=== PATIENT | female | born 1985 | race Caucasian/White ===

== ENCOUNTER 2018-09-16 01:21 | Inpatient (IN) ==
[2018-09-16] MEDS ORDERED: *HR* LORazepam 2 MG/ML VIAL ONE (02:02)
--- NOTE | 2018-09-16 02:17 | Emergency Department Note ---
Disposition Clinical Impression: Acute psychosis Disposition: Still a Patient Condition: Fair Forms: ED Satisfaction Letter Psych HPI - General Chief Complaint: ED Psychiatric Symptoms Stated Complaint: Psych Eval/Court Ordered Time Seen by Provider: 09/16/18 01:55 Source: other Nursing Notes Reviewed: Yes Vital Signs Reviewed: Yes - History of Present Illness HPI Narrative: 32-year-old female brought to the emergency department by [employer] for evaluation for psychiatric condition. Patient has a court order for psychiatric evaluation. Unable to obtain any history or review of systems from the patient. Patient is alert but is actively hallucinating. She will not make eye contact with me. She is actively talking to multiple other people who were not in the room. The only information I could get out of her was that she thought she was having trouble sleeping. Patient is very dirty and unkempt. She has a foul odor which smells like cat urine. Closer dirty with what appears to be a lot of animal hair on her cl othing. I am unsure if the patient is homeless. Pt complaint: medical clearance request If medical clearance, reason: psychiatric condition Onset (ago): unknown Associated Psychiatric Symptoms: other (Patient psychotic and actively hallucinating. Talking to people who are not in the room and will not answer questions or follow commands.) - Related Data Allergies Allergy/AdvReac Type Severity Reaction Status Date / Time Unable to Assess Allergy Unverified 09/16/18 03:58 Limitations: ROS unobtainable due to patients medical condition Past Medical History - Past Medical History Medical history: Reports: other Psychiatric history: Reports: other - Social History Smoking Status: Unknown if ever smoked Physical Exam - General Limitations: other (Acute psychosis and will not answer questions.) General appearance: alert, in no apparent distress - Head Head exam: atraumatic, normocephalic - Chest Chest inspection: Present: normal inspection, symmetric chest wall rise. Absent: tenderness - Respiratory Respiratory exam: Present: normal lung sounds bilaterally. Absent: respiratory distress - Cardiovascular Cardiovascular exam: Present: normal rhythm, tachycardia, normal heart sounds - Abdominal Exam Abdominal exam: Present: soft, Non-Tender, normal bowel sounds - Extremities Exam Extremities exam: Present: full ROM - Back Exam Back exam: Absent: CVA tenderness (R), CVA tenderness (L) - Neurological Exam Neurological exam: Present: alert. Absent: oriented X3 - Psychiatric Psychiatric exam: Present: agitated, other (Acute psychosis with active hallucinations.) - Skin Skin exam: Absent: cyanosis, diaphoresis Course Course Narrative: Patient brought in with Court order for psychiatric evaluation. Unable to obtain any history or review of systems from the patient. Actively psychotic. Patient actively hallucinating and talking to people who were not present but will not answer questions for me. We will obtain clearance labs and consults psychiatry for evaluation. Patient given Ativan 2 mg IM for her agitation. - Reevaluation(s) Reevaluation #1: At morning shift change patient has been evaluated by the [address] psychiatry department and we are awaiting their decision regarding disposition. Patient is signed out to the [facility] physician, Dr. Troncoso. Time: 06:56 Vital Signs Temperature 98.6 F 09/16/18 01:28 Pulse Rate 95 09/16/18 01:28 Respiratory Rate 21 09/16/18 01:28 Blood Pressure 156/74 09/16/18 01:28 O2 Sat by Pulse Oximetry 99 09/16/18 01:28 Temperature 98.6 F 09/16/18 01:28 Pulse Rate 95 09/16/18 01:28 Respiratory Rate 21 09/16/18 01:28 Blood Pressure 156/74 09/16/18 01:28 O2 Sat by Pulse Oximetry 99 09/16/18 01:28 Oxygen Delivery Oxygen Delivery Room Air Psych - Lab Data Lab results reviewed: Yes I reviewed the patient's lab results. Result diagrams: 09/16/18 03:15 09/16/18 03:15 Lab Results 09/16/18 09/16/18 09/16/18 Range/Units 03:04 03:04 03:04 WBC (4.3-11.1) K/mcL RBC (3.82-4.97) M/mcL Hgb (11.5-15.4) g/dL Hct (35.3-44.9) % MCV (83.0-100.0) fL MCH (28.0-33.3) pg MCHC (31.6-35.5) g/dL RDW (11.5-14.5) % Plt Count (140-400) K/mcL MPV (9.4-12.4) fL Immature Gran % (0-4) % Seg Neutrophils % % Lymphocytes % % Monocytes % % Eosinophils % % Basophils % % Neutrophils # (1.6-8.9) K/mcL Lymphocytes # (0.6-4.6) K/mcL Monocytes # (0.0-1.3) K/mcL Eosinophils # (0.0-0.6) K/mcL Basophils # (0.0-0.2) K/mcL Sodium (136-145) mEq/L Potassium (3.5-5.1) mEq/L Chloride (98-107) mEq/L Carbon Dioxide (23-29) mEq/L BUN (6-20) mg/dL Creatinine (0.60-1.20) mg/dL Est GFR ( Amer) (> 60) Est GFR (Non-Af Amer) (> 60) BUN/Creatinine Ratio (6-26) Glucose (70-105) mg/dL Calculated Osmolality (280-300) Calcium (8.6-10.3) mg/dL Total Bilirubin (0.3-1.0) mg/dL Direct Bilirubin (0.0-0.2) mg/dL Indirect Bilirubin (0.0-1.2) mg/dL AST (13-39) Units/L ALT (7-52) Units/L Alkaline Phosphatase (34-104) Units/L Serum Total Protein (6.4-8.9) g/dL Albumin (3.5-5.7) g/dL Globulin (2.4-3.5) g/dL Albumin/Globulin Ratio (1.1-2.2) TSH (0.340-5.600) mcIU/mL Urine Color Yellow (Yellow) Urine Clarity Clear (Clear) Urine pH 6.0 (5.0-8.0) pH Units Ur Specific [place] 1.014 (1.010-1.025) Urine Protein Negative (Neg-Trace) mg/dL Urine Glucose (UA) Normal (Normal) mg/dL Urine Ketones 15 H (Negative) mg/dL Urine Blood Negative (Negative) Urine Nitrite Negative (Negative) Urine Bilirubin Negative (Negative) Urine Urobilinogen Normal (Normal) mg/dL Ur Leukocyte Esterase Negative (Negative) Urine Test Negative (Negative) Salicylates (15.0-30.0) mg/dL Urine Opiates Screen Negative ([place]=094) ng/mL Acetaminophen (10-20) mcg/mL Ur Barbiturates Screen Negative (Ahritp=502) ng/mL Ur Phencyclidine Scrn Negative (Cutoff=25) ng/mL Ur Amphetamines Screen Negative (Wqleoq=6311) ng/mL U Benzodiazepines Scrn Negative (Bxbdwg=430) ng/mL Urine Cocaine Screen Negative (Cutoff= 300) ng/mL U Marijuana (THC) Screen Negative (Cutoff = 50) ng/mL Ur Drug Screen Interp See Below Ethyl Alcohol (Less than 10) mg/dL 09/16/18 09/16/18 09/16/18 Range/Units 03:15 03:15 03:15 WBC 9.1 (4.3-11.1) K/mcL RBC 3.68 L (3.82-4.97) M/mcL Hgb 11.1 L (11.5-15.4) g/dL Hct 34.0 L (35.3-44.9) % MCV 92.4 (83.0-100.0) fL MCH 30.2 (28.0-33.3) pg MCHC 32.6 (31.6-35.5) g/dL RDW 12.9 (11.5-14.5) % Plt Count 281 (140-400) K/mcL MPV 9.3 L (9.4-12.4) fL Immature Gran % 0.3 (0-4) % Seg Neutrophils % 68.6 % Lymphocytes % 19.0 % Monocytes % 10.1 % Eosinophils % 1.5 % Basophils % 0.5 % Neutrophils # 6.2 (1.6-8.9) K/mcL Lymphocytes # 1.7 (0.6-4.6) K/mcL Monocytes # 0.9 (0.0-1.3) K/mcL Eosinophils # 0.1 (0.0-0.6) K/mcL Basophils # 0.1 (0.0-0.2) K/mcL Sodium 138 (136-145) mEq/L Potassium 3.5 (3.5-5.1) mEq/L Chloride 107 (98-107) mEq/L Carbon Dioxide 24 (23-29) mEq/L BUN 8 (6-20) mg/dL Creatinine 0.63 (0.60-1.20) mg/dL Est GFR ( Amer) > 60 (> 60) Est GFR (Non-Af Amer) > 60 (> 60) BUN/Creatinine Ratio 13 (6-26) Glucose 92 (70-105) mg/dL Calculated Osmolality 284 (280-300) Calcium 8.8 (8.6-10.3) mg/dL Total Bilirubin 0.6 (0.3-1.0) mg/dL Direct Bilirubin 0.1 (0.0-0.2) mg/dL Indirect Bilirubin 0.5 (0.0-1.2) mg/dL AST 16 (13-39) Units/L ALT 12 (7-52) Units/L Alkaline Phosphatase 44 (34-104) Units/L Serum Total Protein 6.2 L (6.4-8.9) g/dL Albumin 4.0 (3.5-5.7) g/dL Globulin 2.2 L (2.4-3.5) g/dL Albumin/Globulin Ratio 1.8 (1.1-2.2) TSH 1.328 (0.340-5.600) mcIU/mL Urine Color (Yellow) Urine Clarity (Clear) Urine pH (5.0-8.0) pH Units Ur Specific [place] (1.010-1.025) Urine Protein (Neg-Trace) mg/dL Urine Glucose (UA) (Normal) mg/dL Urine Ketones (Negative) mg/dL Urine Blood (Negative) Urine Nitrite (Negative) Urine Bilirubin (Negative) Urine Urobilinogen (Normal) mg/dL Ur Leukocyte Esterase (Negative) Urine Test (Negative) Salicylates < 2.5 L (15.0-30.0) mg/dL Urine Opiates Screen (Vbheyx=812) ng/mL Acetaminophen < 10 L (10-20) mcg/mL Ur Barbiturates Screen (Xpuszg=878) ng/mL Ur Phencyclidine Scrn (Cutoff=25) ng/mL Ur Amphetamines Screen (Bqssww=9979) ng/mL U Benzodiazepines Scrn (Cnqumm=744) ng/mL Urine Cocaine Screen (Cutoff= 300) ng/mL U Marijuana (THC) Screen (Cutoff = 50) ng/mL Ur Drug Screen Interp Ethyl Alcohol < 10 (Less than 10) mg/dL Psychiatric Medical Clearance - Medical Clearance Checklist Any abnormalities indicating possible medical illness?: No Medical History: No Social History Section defined Current Vitals: Last Vital Signs Temp 98.6 F 09/16/18 01:28 Pulse 95 09/16/18 01:28 Resp 21 09/16/18 01:28 BP 156/74 09/16/18 01:28 Pulse Ox 99 09/16/18 01:28 Psychiatric Lab Panel: Drug Levels and Toxicity 09/16/18 09/16/18 03:04 03:15 Urine Opiates Screen Negative Acetaminophen < 10 L Ur Barbiturates Screen Negative Ur Phencyclidine Scrn Negative Ur Amphetamines Screen Negative U Benzodiazepines Scrn Negative Urine Cocaine Screen Negative U Marijuana (THC) Screen Negative Ethyl Alcohol < 10 Abnormal Labs: Abnormal lab results RBC 3.68 M/mcL (3.82-4.97) L 09/16/18 03:15 Hgb 11.1 g/dL (11.5-15.4) L 09/16/18 03:15 Hct 34.0 % (35.3-44.9) L 09/16/18 03:15 MPV 9.3 fL (9.4-12.4) L 09/16/18 03:15 6.2 g/dL (6.4-8.9) L 09/16/18 03:15 2.2 g/dL (2.4-3.5) L 09/16/18 03:15 15 mg/dL (Negative) H 09/16/18 03:04 Salicylates < 2.5 mg/dL (15.0-30.0) L 09/16/18 03:15 Acetaminophen < 10 mcg/mL (10-20) L 09/16/18 03:15 Does the patient require durable medical equiptment?: No Is the patient ambulatory?: Yes Is the patient a fall risk?: No Has the patient been medically cleared?: Yes Any acute medical condition require Tx prior to transfer?: No Statement of Medical Clearance: I have evaluated the patient, reviewed diagnostic information, and certify that the patient's medical condition is sufficiently stable that transfer to the psychiatric unit does not pose a significant risk of deterioration.
[2018-09-16] MEDS ORDERED: *HR* LORazepam 2 MG/ML VIAL IM ONE (02:25)
[2018-09-16 03:14] LABS: Bilirubin,Urine Negative (Negative); Blood,Urine Negative (Negative); Clarity,Urine Clear (Clear); Color,Urine Yellow (Yellow); Glucose,Urine (UA) Normal (Normal); Ketones,Urine 15 mg/dL (Negative); Leukocyte Esterase,Urine Negative (Negative); Nitrite,Urine Negative (Negative); Protein,Urine Negative (Neg-Trace); Specific Gravity,Urine 1.014 (1.010-1.025); Urobilinogen,Urine Normal (Normal)
[2018-09-16 03:26] LABS: Basophils # 0.1 K/mcL (0.0-0.2); Basophils % 0.5 %; Eosinophils # 0.1 K/mcL (0.0-0.6); Eosinophils % 1.5 %; Hemoglobin 11.1 g/dL (11.5-15.4); Immature Granulocytes % 0.3 % (0-4); Lymphocytes # 1.7 K/mcL (0.6-4.6); Mean Corpuscular HGB Conc 32.6 g/dL (31.6-35.5); Mean Corpuscular Hemoglobin 30.2 pg (28.0-33.3); Mean Corpuscular Volume 92.4 fL (83.0-100.0); Mean Platelet Volume 9.3 fL (9.4-12.4); Monocytes # 0.9 K/mcL (0.0-1.3); Monocytes % 10.1 %; Neutrophils # 6.2 K/mcL (1.6-8.9); Platelet Count 281 K/mcL (140-400); Red Blood Count 3.68 M/mcL (3.82-4.97); Red Cell Distribution Width 12.9 % (11.5-14.5); Segmented Neutrophils % 68.6 %
[2018-09-16 03:45] LABS: Acetaminophen < 10 mcg/mL (10-20); BUN/Creatinine Ratio 13 (6-26); Blood Urea Nitrogen 8 mg/dL (6-20); Calcium 8.8 mg/dL (8.6-10.3); Carbon Dioxide 24 mEq/L (23-29); Chloride 107 mEq/L (98-107); Ethanol < 10 mg/dL (Less than 10); Glucose 92 mg/dL (70-105); Osmolality,Calculated 284 (280-300); Potassium 3.5 mEq/L (3.5-5.1); Salicylate < 2.5 mg/dL (15.0-30.0); Sodium 138 mEq/L (136-145); eGFR For Non-African Americans > 60 (> 60)
[2018-09-16 03:47] LABS: Albumin/Globulin Ratio 1.8 (1.1-2.2); Bilirubin,Direct 0.1 mg/dL (0.0-0.2); Bilirubin,Indirect 0.5 mg/dL (0.0-1.2); Bilirubin,Total 0.6 mg/dL (0.3-1.0); Globulin 2.2 g/dL (2.4-3.5); Total Protein 6.2 g/dL (6.4-8.9)
[2018-09-16 04:01] LABS: Thyroid Stimulating Hormone 1.328 mcIU/mL (0.340-5.600)
[2018-09-16 04:24] LABS: Amphetamine Screen,Urine Negative ng/mL (Cutoff=1000); Barbiturate Screen,Urine Negative ng/mL (Cutoff=200); Benzodiazepines Screen,Urine Negative ng/mL (Cutoff=200); Cannabinoid Screen,Urine Negative ng/mL (Cutoff = 50); Cocaine Screen,Urine Negative ng/mL (Cutoff= 300); Opiate Screen,Urine Negative ng/mL (Cutoff=300); Phencyclidine Screen,Urine Negative ng/mL (Cutoff=25)
--- NOTE | 2018-09-16 07:08 | Emergency Department Note ---
Disposition Clinical Impression: Acute psychosis Disposition: Admitted As Inpatient Condition: Fair Referrals: NONE,PCP [Primary Care Provider] - Forms: ED Satisfaction Letter General Adult HPI - General Chief complaint: ED Psychiatric Symptoms Stated complaint: Psych Eval/Court Ordered Time Seen by Provider: 09/16/18 01:55 Source: other Limitations: other (Acute psychosis and will not answer questions.) Nursing Notes Reviewed: Yes Vital Signs Reviewed: Yes - History of Present Illness HPI Narrative: ED attending note: Patient received in signout by the departing the emergency medicine attending Mook Pedraza. Please see copy of his note for details of the history p hysical examination evaluation and management to the point of sign out at 7 AM. Patient was clearly psychotic and" order patient has been medically cleared and evaluated by mental health services. We are awaiting their disposition which we strongly anticipate we will be placement and/or admission at [place]. Patient is comfortable breakfast tray has been ordered. Disposition pending Pain Scale: 0 - Related Data Allergies Allergy/AdvReac Type Severity Reaction Status Date / Time Unable to Assess Allergy Unverified 09/16/18 03:58 Past Medical History - Past Medical History Medical history: Reports: other Psychiatric history: Reports: other - Social History Smoking Status: Unknown if ever smoked Physical Exam - General Limitations: other (Acute psychosis and will not answer questions.) General appearance: alert, in no apparent distress Course - Reevaluation(s) Reevaluation #1: Patient was evaluated by mental health they agreed that the patient required inpatient admission. Order for admission was placed. Patient will be transported to the mental health unit. Time: 11:27 Vital Signs Temperature 98.6 F 09/16/18 01:28 Pulse Rate 95 09/16/18 01:28 Respiratory Rate 21 09/16/18 01:28 Blood Pressure 156/74 09/16/18 01:28 O2 Sat by Pulse Oximetry 99 09/16/18 01:28 Temperature 98.6 F 09/16/18 01:28 Pulse Rate 59 09/16/18 09:52 Respiratory Rate 16 09/16/18 09:52 Blood Pressure 106/69 09/16/18 09:52 O2 Sat by Pulse Oximetry 97 09/16/18 09:52 Oxygen Delivery Oxygen Delivery Room Air Medical Decision Making - Lab Data Result diagrams: 09/16/18 03:15 09/16/18 03:15 Lab Results 09/16/18 09/16/18 09/16/18 Range/Units 03:04 03:04 03:04 WBC (4.3-11.1) K/mcL RBC (3.82-4.97) M/mcL Hgb (11.5-15.4) g/dL Hct (35.3-44.9) % MCV (83.0-100.0) fL MCH (28.0-33.3) pg MCHC (31.6-35.5) g/dL RDW (11.5-14.5) % Plt Count (140-400) K/mcL MPV (9.4-12.4) fL Immature Gran % (0-4) % Seg Neutrophils % % Lymphocytes % % Monocytes % % Eosinophils % % Basophils % % Neutrophils # (1.6-8.9) K/mcL Lymphocytes # (0.6-4.6) K/mcL Monocytes # (0.0-1.3) K/mcL Eosinophils # (0.0-0.6) K/mcL Basophils # (0.0-0.2) K/mcL Sodium (136-145) mEq/L Potassium (3.5-5.1) mEq/L Chloride (98-107) mEq/L Carbon Dioxide (23-29) mEq/L BUN (6-20) mg/dL Creatinine (0.60-1.20) mg/dL Est GFR ( Amer) (> 60) Est GFR (Non-Af Amer) (> 60) BUN/Creatinine Ratio (6-26) Glucose (70-105) mg/dL Calculated Osmolality (280-300) Calcium (8.6-10.3) mg/dL Total Bilirubin (0.3-1.0) mg/dL Direct Bilirubin (0.0-0.2) mg/dL Indirect Bilirubin (0.0-1.2) mg/dL AST (13-39) Units/L ALT (7-52) Units/L Alkaline Phosphatase (34-104) Units/L Serum Total Protein (6.4-8.9) g/dL Albumin (3.5-5.7) g/dL Globulin (2.4-3.5) g/dL Albumin/Globulin Ratio (1.1-2.2) TSH (0.340-5.600) mcIU/mL Urine Color Yellow (Yellow) Urine Clarity Clear (Clear) Urine pH 6.0 (5.0-8.0) pH Units Ur Specific [place] 1.014 (1.010-1.025) Urine Protein Negative (Neg-Trace) mg/dL Urine Glucose (UA) Normal (Normal) mg/dL Urine Ketones 15 H (Negative) mg/dL Urine Blood Negative (Negative) Urine Nitrite Negative (Negative) Urine Bilirubin Negative (Negative) Urine Urobilinogen Normal (Normal) mg/dL Ur Leukocyte Esterase Negative (Negative) Urine Test Negative (Negative) Salicylates (15.0-30.0) mg/dL Urine Opiates Screen Negative (Wnaujh=938) ng/mL Acetaminophen (10-20) mcg/mL Ur Barbiturates Screen Negative (Nuftmg=606) ng/mL Ur Phencyclidine Scrn Negative (Cutoff=25) ng/mL Ur Amphetamines Screen Negative (Rmsbpj=5531) ng/mL U Benzodiazepines Scrn Negative (Fwnren=006) ng/mL Urine Cocaine Screen Negative (Cutoff= 300) ng/mL U Marijuana (THC) Screen Negative (Cutoff = 50) ng/mL Ur Drug Screen Interp See Below Ethyl Alcohol (Less than 10) mg/dL 09/16/18 09/16/18 09/16/18 Range/Units 03:15 03:15 03:15 WBC 9.1 (4.3-11.1) K/mcL RBC 3.68 L (3.82-4.97) M/mcL Hgb 11.1 L (11.5-15.4) g/dL Hct 34.0 L (35.3-44.9) % MCV 92.4 (83.0-100.0) fL MCH 30.2 (28.0-33.3) pg MCHC 32.6 (31.6-35.5) g/dL RDW 12.9 (11.5-14.5) % Plt Count 281 (140-400) K/mcL MPV 9.3 L (9.4-12.4) fL Immature Gran % 0.3 (0-4) % Seg Neutrophils % 68.6 % Lymphocytes % 19.0 % Monocytes % 10.1 % Eosinophils % 1.5 % Basophils % 0.5 % Neutrophils # 6.2 (1.6-8.9) K/mcL Lymphocytes # 1.7 (0.6-4.6) K/mcL Monocytes # 0.9 (0.0-1.3) K/mcL Eosinophils # 0.1 (0.0-0.6) K/mcL Basophils # 0.1 (0.0-0.2) K/mcL Sodium 138 (136-145) mEq/L Potassium 3.5 (3.5-5.1) mEq/L Chloride 107 (98-107) mEq/L Carbon Dioxide 24 (23-29) mEq/L BUN 8 (6-20) mg/dL Creatinine 0.63 (0.60-1.20) mg/dL Est GFR ( Amer) > 60 (> 60) Est GFR (Non-Af Amer) > 60 (> 60) BUN/Creatinine Ratio 13 (6-26) Glucose 92 (70-105) mg/dL Calculated Osmolality 284 (280-300) Calcium 8.8 (8.6-10.3) mg/dL Total Bilirubin 0.6 (0.3-1.0) mg/dL Direct Bilirubin 0.1 (0.0-0.2) mg/dL Indirect Bilirubin 0.5 (0.0-1.2) mg/dL AST 16 (13-39) Units/L ALT 12 (7-52) Units/L Alkaline Phosphatase 44 (34-104) Units/L Serum Total Protein 6.2 L (6.4-8.9) g/dL Albumin 4.0 (3.5-5.7) g/dL Globulin 2.2 L (2.4-3.5) g/dL Albumin/Globulin Ratio 1.8 (1.1-2.2) TSH 1.328 (0.340-5.600) mcIU/mL Urine Color (Yellow) Urine Clarity (Clear) Urine pH (5.0-8.0) pH Units Ur Specific [place] (1.010-1.025) Urine Protein (Neg-Trace) mg/dL Urine Glucose (UA) (Normal) mg/dL Urine Ketones (Negative) mg/dL Urine Blood (Negative) Urine Nitrite (Negative) Urine Bilirubin (Negative) Urine Urobilinogen (Normal) mg/dL Ur Leukocyte Esterase (Negative) Urine Test (Negative) Salicylates < 2.5 L (15.0-30.0) mg/dL Urine Opiates Screen (Docflv=212) ng/mL Acetaminophen < 10 L (10-20) mcg/mL Ur Barbiturates Screen (Ajepjj=329) ng/mL Ur Phencyclidine Scrn (Cutoff=25) ng/mL Ur Amphetamines Screen (Wnzfhz=5435) ng/mL U Benzodiazepines Scrn (Wetscc=704) ng/mL Urine Cocaine Screen (Cutoff= 300) ng/mL U Marijuana (THC) Screen (Cutoff = 50) ng/mL Ur Drug Screen Interp Ethyl Alcohol < 10 (Less than 10) mg/dL
[2018-09-16] MEDS: Ziprasidone 20 MG CAPSULE PO SCH ×2 (13:18→20:51)
[2018-09-16] MEDS ORDERED: Acetaminophen 325 MG TABLET PO PRN (13:46)
[2018-09-16] MEDS ORDERED: Haloperidol Lactate 5 MG/ML VIAL IM PRN (13:46)
[2018-09-16] MEDS ORDERED: Mag Hydrox/Al Hydrox/Simeth 30 ML UDC PO PRN (13:46)
[2018-09-16] MEDS ORDERED: MOM Conc 10 ML UD.LIQ PO PRN (13:46)
[2018-09-16] MEDS ORDERED: *HR* LORazepam 1 MG TABLET PO PRN (13:46)
[2018-09-16] MEDS ORDERED: *HR* LORazepam 2 MG/ML VIAL IM PRN (13:46)
[2018-09-17] MEDS: Ziprasidone 20 MG CAPSULE PO SCH (10:44)
--- NOTE | 2018-09-17 10:52 | Psychiatry History & Physical ---
Date of Encounter: 09/17/18 Time of Encounter: 10:43 History of Present Illness Patient Stated Chief Complaint: psychosis Medicare Admission Attestation: For traditional Medicare patients the provided hospital inpatient services are reasonable and necessary and in the case of services not specified as inpatient-only under 42 CFR 419.22 (n), that they are appropriately provided as inpatient services in accordance 42 CFR 412.3. For Critical [facility] the patient may reasonably be expected to be discharged or transferred to a hospital within 96 hours after admission to the Critical [facility] Hospital. Admitted From: Home Plans for Post Hospital Care: Home History of Present Illness: Ms. Howard is a 32 year old female who is actively psychotic. Unable to give any history at this time. According to staff no one is familiar with her and it does not appear as if she has ever been here before. Police reportedly picked her up and brought her to the ER. On eval client is rocking back and forth and responding to internal stimuli. Having multiple conversations with people who are not there. She is able to answer questions with yes/no provided she takes the time to really listen to what is being asked. However, it is clear that there are several voices competing for her attention and she has a hard time focusing at this time. She was able to deny SI/HI. Denies she has a mental health history although that is doubtful given her presentation. Denies AOD use and tox screen negative. States she lives with someone called "delgado." Asked this freelance writer to call her but the phone number she gave this freelance writer was a series of numbers that do not make up a complete phone number. Since arriving on the unit client has been writing excessively. Filling up pages in her notebook with nonsensical thoughts. Very impaired by her psychosis at this point but she did take prns offered in the ER so will get her started on an antipsychotic today. Nothing is known about her medical or family history. Past Med Surg Social Fam HX - Past Medical History Medical history: other - Past Psychiatric History Psychiatric history: Reports: other Family psychiatric history: Unknown Family History of Suicide: Unknown - Social History Smoking Status: Unknown if ever smoked Medications & Allergies Allergy/AdvReac Type Severity Reaction Status Date / Time Unable to Assess Allergy Unverified 09/16/18 03:58 Review of Systems Constitutional: Denies: fever, chills, weakness, weight change Eyes: Denies: eye pain, vision change Ears, Nose, Throat: Denies: ear pain, throat pain, dental pain, hearing loss, congestion Cardiovascular: Denies: chest pain, palpitations, dyspnea on exertion Respiratory: Denies: cough, dyspnea, wheezes Gastrointestinal: Denies: abdominal pain, nausea, vomiting, diarrhea, constipation Genitourinary female: Denies: urgency, dysuria, frequency, abnormal menses, dyspareunia Musculoskeletal: Denies: joint swelling, joint pain Integumentary: Denies: rash, lesions, pruritus Neurological: Denies: headache, weakness, numbness, memory loss Endocrine: Denies: fatigue, heat or cold intolerance Hematologic/Lymphatic: Denies: easy bruising, lymphadenopathy Allergic/Immunologic: Denies: urticaria, itchy eyes Exam - HEENT Eye exam IM: Present: EOMI, normal appearance, PERRL ENT exam IM: Present: normal exam - Neurological Neurological exam: Present: CN II-XII intact - Respiratory Respiratory exam IM: Present: CTAB - GI/Abdominal GI/Abdominal exam IM: Present: normal bowel sounds, soft. Absent: tenderness - Extremities Extremities exam IM: Present: full ROM - Skin Skin exam IM: Present: dry, warm - Constitutional Vitals: Temp Pulse Resp BP Pulse Ox 98.2 F 86 18 124/87 100 09/17/18 08:46 09/17/18 08:46 09/17/18 08:46 09/17/18 08:46 09/17/18 08:46 General appearance: unkempt, disheveled - Musculoskeletal Gait: normal Station: relaxed Strength & Tone: normal for patient - Psychiatric Patient Orientation: Yes Person, Yes Circumstance Level of alertness: Alert Behavior: agitated Psychomotor activity: Increased Eye Contact: Minimal Contact Mood Description: Irritable Affect description: congruent with mood Speech Volume: Normal Speech pattern: normal rate, normal rhythm, normal tone, fluent, spontaneous Language & Vocabulary: consistent with education Thought Process: Flight of Ideas, Disorganized Thought Content: No Suicidal ideation, No Homicidal ideation Perceptual Disturbances: Yes Reacting to internal stimuli Attention Span Ability: Unable to Focus, Unable to Sustain Attention Memory Description: Immediate Intact, Recent Impaired, Remote Intact Patient Reliability: Not Reliable Historian Fund of knowledge: Yes abstraction ability Intelligence Estimate: Average Judgment: Limited Insight: None Results - Labs Labs: Laboratory Last Values WBC 9.1 K/mcL (4.3-11.1) 09/16/18 03:15 RBC 3.68 M/mcL (3.82-4.97) L 09/16/18 03:15 Hgb 11.1 g/dL (11.5-15.4) L 09/16/18 03:15 Hct 34.0 % (35.3-44.9) L 09/16/18 03:15 MCV 92.4 fL (83.0-100.0) 09/16/18 03:15 MCH 30.2 pg (28.0-33.3) 09/16/18 03:15 MCHC 32.6 g/dL (31.6-35.5) 09/16/18 03:15 RDW 12.9 % (11.5-14.5) 09/16/18 03:15 Plt Count 281 K/mcL (140-400) 09/16/18 03:15 MPV 9.3 fL (9.4-12.4) L 09/16/18 03:15 Immature Gran % 0.3 % (0-4) 09/16/18 03:15 Seg Neutrophils % 68.6 % 09/16/18 03:15 19.0 % 09/16/18 03:15 10.1 % 09/16/18 03:15 1.5 % 09/16/18 03:15 0.5 % 09/16/18 03:15 6.2 K/mcL (1.6-8.9) 09/16/18 03:15 1.7 K/mcL (0.6-4.6) 09/16/18 03:15 0.9 K/mcL (0.0-1.3) 09/16/18 03:15 0.1 K/mcL (0.0-0.6) 09/16/18 03:15 0.1 K/mcL (0.0-0.2) 09/16/18 03:15 Sodium 138 mEq/L (136-145) 09/16/18 03:15 Potassium 3.5 mEq/L (3.5-5.1) 09/16/18 03:15 Chloride 107 mEq/L (98-107) 09/16/18 03:15 Carbon Dioxide 24 mEq/L (23-29) 09/16/18 03:15 BUN 8 mg/dL (6-20) 09/16/18 03:15 0.63 mg/dL (0.60-1.20) 09/16/18 03:15 Est GFR ( Amer) > 60 (> 60) 09/16/18 03:15 Est GFR (Non-Af Amer) > 60 (> 60) 09/16/18 03:15 13 (6-26) 09/16/18 03:15 Glucose 92 mg/dL (70-105) 09/16/18 03:15 284 (280-300) 09/16/18 03:15 Calcium 8.8 mg/dL (8.6-10.3) 09/16/18 03:15 0.6 mg/dL (0.3-1.0) 09/16/18 03:15 0.1 mg/dL (0.0-0.2) 09/16/18 03:15 0.5 mg/dL (0.0-1.2) 09/16/18 03:15 AST 16 Units/L (13-39) 09/16/18 03:15 ALT 12 Units/L (7-52) 09/16/18 03:15 44 Units/L (34-104) 09/16/18 03:15 6.2 g/dL (6.4-8.9) L 09/16/18 03:15 4.0 g/dL (3.5-5.7) 09/16/18 03:15 2.2 g/dL (2.4-3.5) L 09/16/18 03:15 1.8 (1.1-2.2) 09/16/18 03:15 TSH 1.328 mcIU/mL (0.340-5.600) 09/16/18 03:15 Yellow (Yellow) 09/16/18 03:04 Clear (Clear) 09/16/18 03:04 6.0 pH Units (5.0-8.0) 09/16/18 03:04 Ur Specific Bantam 1.014 (1.010-1.025) 09/16/18 03:04 Negative mg/dL (Neg-Trace) 09/16/18 03:04 Normal mg/dL (Normal) 09/16/18 03:04 15 mg/dL (Negative) H 09/16/18 03:04 Negative (Negative) 09/16/18 03:04 Negative (Negative) 09/16/18 03:04 Negative (Negative) 09/16/18 03:04 Normal mg/dL (Normal) 09/16/18 03:04 Ur Leukocyte Esterase Negative (Negative) 09/16/18 03:04 Negative (Negative) 09/16/18 03:04 Salicylates < 2.5 mg/dL (15.0-30.0) L 09/16/18 03:15 Negative ng/mL (Zeogsx=437) 09/16/18 03:04 Acetaminophen < 10 mcg/mL (10-20) L 09/16/18 03:15 Ur Barbiturates Screen Negative ng/mL (Holgtx=456) 09/16/18 03:04 Ur Phencyclidine Scrn Negative ng/mL (Cutoff=25) 09/16/18 03:04 Ur Amphetamines Screen Negative ng/mL (Hemjot=0525) 09/16/18 03:04 U Benzodiazepines Scrn Negative ng/mL (Voyqeq=693) 09/16/18 03:04 Negative ng/mL (Cutoff= 300) 09/16/18 03:04 U Marijuana (THC) Screen Negative ng/mL (Cutoff = 50) 09/16/18 03:04 Ur Drug Screen Interp See Below 09/16/18 03:04 Ethyl Alcohol < 10 mg/dL (Less than 10) 09/16/18 03:15 Assessment and Plan (1) Acute psychosis Current visit: Yes Status: Acute Plan: Admit inpatient for safety and stabilization, Close observation, Suicide Precautions per unit protocol, Encourage participation in unit milieu, Group Therapy, Monitor sleep, Monitor appetite Risks, benefits, side effects, alternatives discussed w/pt: Yes Patient agreeable to treatment: Yes Plans for Post Hospital Care: Home Estimated Length of Stay (Days): 7
[2018-09-17] MEDS: OLANZapine 10 MG TAB.RAPDIS PO SCH (20:48)
[2018-09-17] MEDS: hydrOXYzine pamoate 25 MG CAPSULE PO PRN (20:48)
--- NOTE | 2018-09-18 11:10 | Psychiatry Progress Note ---
Date of Encounter: 09/18/18 Time of Encounter: 11:08 Subjective Interval history: Patient very disorganized. It was difficult to understand her speech at times but then did clearly state that she is half robot and does not belong here. She was frequently blinking her eyes. She carried a journal with writing across all of the pages as well as writing on both of her hands. She has tried to spit out her medications. Been noted by staff to be arguing with her voices. She has not eaten at all yesterday. She slept 7-3/4 hours. She has been noted to be labile at times. Review of Systems Psychiatric: Reports: anxiety, auditory hallucinations, visual hallucinations, difficulty concentrating, irritability, other (psychosis) Results - Vital Signs Vital Signs: Temp Pulse Resp BP Pulse Ox 99 F 82 20 119/73 100 09/18/18 09:00 09/18/18 09:00 09/18/18 09:00 09/18/18 09:00 09/18/18 09:00 Assessment and Plan (1) Schizophrenia Current visit: Yes Status: Acute Plan: Continue hospitalization, Close observation, Suicide Precautions per unit protocol, Encourage participation in unit milieu, Group Therapy, Monitor sleep, Monitor appetite Additional Plan: Increase Zyprexa by 5 in the morning to a total of 5 mg in the morning and 10 at night for further mood stabilization and antipsychotic effect. Her aims is 0. She has had some difficulties with compliance if this continues we will consider for court ordered medications. Encourage groups. Consult Discharge Plan - Plan Referrals: NONE,PCP [Primary Care Provider] - Psychiatry Exam - Constitutional Vitals: Temp Pulse Resp BP Pulse Ox 99 F 82 20 119/73 100 09/18/18 09:00 09/18/18 09:00 09/18/18 09:00 09/18/18 09:00 09/18/18 09:00 General appearance: disheveled, malodorous - Musculoskeletal Gait: brisk Station: stooped Strength & Tone: normal for patient - Psychiatric Patient Orientation: Yes Person (responds to name) Level of alertness: Alert Behavior: guarded, suspicious Psychomotor activity: Increased Eye Contact: Rapid Blinking (squinting at times) Mood Description: Irritable Patient description of mood: why Affect description: labile Speech Volume: Whispering Speech pattern: garbled Language & Vocabulary: limited Thought Process: Flight of Ideas Thought Content: No Suicidal ideation, No Homicidal ideation, Yes Preoccupation, Yes Paranoid delusion, Yes Somatic delusion Perceptual Disturbances: Yes Reacting to internal stimuli, Yes Auditory hallucinations, Yes Visual hallucinations Attention Span Ability: Unable to Focus, Unable to Sustain Attention Memory Description: Immediate Impaired, Recent Impaired, Remote Impaired Patient Reliability: Not Reliable Historian Fund of knowledge: Yes below average Intelligence Estimate: Below Average Judgment: Poor Insight: None
[2018-09-18] MEDS: hydrOXYzine pamoate 25 MG CAPSULE PO PRN (22:50)
[2018-09-18] MEDS: OLANZapine 10 MG TAB.RAPDIS PO SCH (22:50)
--- NOTE | 2018-09-19 08:08 | Psychiatry Progress Note ---
Date of Encounter: 09/19/18 Time of Encounter: 08:06 Subjective Interval history: Patient remains very disorganized and confused. She is disheveled. She has not been caring for her activities of daily living. She has been eating very little. She did take her Zyprexa Zydis last night. She also required when necessary Seroquel and Vistaril due to increased psychosis. She has periods of lability and irritability. Review of Systems Psychiatric: Reports: anxiety, auditory hallucinations, visual hallucinations, difficulty concentrating, irritability, other (psychosis) Results - Vital Signs Vital Signs: Temp Pulse Resp BP Pulse Ox 97.4 F L 84 18 119/84 99 09/18/18 21:00 09/18/18 21:00 09/18/18 21:00 09/18/18 21:00 09/18/18 21:00 Assessment and Plan (1) Schizophrenia Current visit: Yes Status: Acute Plan: Continue hospitalization, Close observation, Suicide Precautions per unit protocol, Encourage participation in unit milieu, Group Therapy, Monitor sleep, Monitor appetite Additional Plan: Will get first dose of am zydis today. Will increase prn seroquel. Encourage groups Consult Discharge Plan - Plan Referrals: NONE,PCP [Primary Care Provider] - Psychiatry Exam - Constitutional Vitals: Temp Pulse Resp BP Pulse Ox 97.4 F L 84 18 119/84 99 09/18/18 21:00 09/18/18 21:00 09/18/18 21:00 09/18/18 21:00 09/18/18 21:00 General appearance: disheveled, malodorous - Musculoskeletal Gait: slow Station: slouched Strength & Tone: normal for patient - Psychiatric Patient Orientation: Yes Person Level of alertness: Alert Behavior: guarded, suspicious Psychomotor activity: Repetitive movements Eye Contact: Avoids Eye Contact Mood Description: Labile Patient description of mood: What side of the earth are we on Affect description: labile, inappropriate to situation Speech Volume: Soft/Quiet Speech pattern: garbled Language & Vocabulary: limited Thought Process: Thought Blocking, Perseveration Thought Content: No Suicidal ideation, No Homicidal ideation, Yes Paranoid delusion Perceptual Disturbances: Yes Reacting to internal stimuli, Yes Auditory hallucinations, Yes Visual hallucinations Attention Span Ability: Unable to Focus, Unable to Sustain Attention Memory Description: Immediate Impaired, Recent Impaired, Remote Impaired Patient Reliability: Not Reliable Historian Fund of knowledge: Yes below average Intelligence Estimate: Below Average Judgment: Poor Insight: None
[2018-09-19] MEDS: OLANZapine 5 MG TAB.RAPDIS PO SCH (10:12)
[2018-09-19] MEDS: OLANZapine 10 MG TAB.RAPDIS PO SCH (20:04)
[2018-09-19] MEDS: hydrOXYzine pamoate 25 MG CAPSULE PO PRN (20:04)
--- NOTE | 2018-09-20 08:34 | Psychiatry Progress Note ---
Date of Encounter: 09/20/18 Time of Encounter: 08:32 Subjective Interval history: michael remains very disorganized. I asked her if there was some and we contacted for additional information. She again gave the name "Rosalino". I asked her to write down his name and phone number and she repeatedly wrote different spellings of the name and crossing them out and then writing the #[phone] with different digits after at several different times and counting it out. She continues to try to cheek medications but talks to herself the staff overhear her saying "just put it under your tongue for a minute Earnestine". They have been monitoring her. She spends a lot of time circling the unit. She is very disheveled. She eats very little. She is responding to internal stimuli. Review of Systems Psychiatric: Reports: anxiety, auditory hallucinations, visual hallucinations, difficulty concentrating, irritability, other (psychosis) Results - Vital Signs Vital Signs: Temp Pulse Resp BP Pulse Ox 97.4 F L 84 18 119/84 99 09/18/18 21:00 09/18/18 21:00 09/18/18 21:00 09/18/18 21:00 09/18/18 21:00 Assessment and Plan (1) Schizophrenia Current visit: Yes Status: Acute Plan: Continue hospitalization, Close observation, Suicide Precautions per unit protocol, Encourage participation in unit milieu, Group Therapy, Monitor sleep, Monitor appetite Additional Plan: Her rose Parag catatonia rating scale was notable for positives on 10 of the first 14 screening inventory items with a total score of 27. Given this I will trial some Ativan to see if this has any improvement in her functioning. Start Ativan 1 mg by mouth 3 times a day for possible catatonic symptoms. Continue other medications. Encourage groups. Risks, benefits, side effects, alternatives discussed w/pt: Yes Patient agre eable to treatment: Yes Qualifiers: Schizophrenia type: undifferentiated schizophrenia Qualified Code(s): F20.3 - Undifferentiated schizophrenia Consult Discharge Plan - Plan Referrals: NONE,PCP [Primary Care Provider] - Psychiatry Exam - Constitutional Vitals: Temp Pulse Resp BP Pulse Ox 97.4 F L 84 18 119/84 99 09/18/18 21:00 09/18/18 21:00 09/18/18 21:00 09/18/18 21:00 09/18/18 21:00 General appearance: disheveled, malodorous - Musculoskeletal Gait: slow Station: stooped Strength & Tone: mild weakness - Psychiatric Patient Orientation: Yes Person Level of alertness: Alert Behavior: guarded, suspicious Psychomotor activity: Catatonic (May have some repetitive purposeless catatonic type behaviors.) Eye Contact: Avoids Eye Contact Mood Description: Other Patient description of mood: "what?" Affect description: inappropriate to situation, incongruent with mood Speech Volume: Soft/Quiet Speech pattern: garbled Language & Vocabulary: limited Thought Process: Flight of Ideas Thought Content: No Suicidal ideation, No Homicidal ideation, Yes Preoccupation, Yes Paranoid delusion Perceptual Disturbances: Yes Reacting to internal stimuli, Yes Auditory hallucinations, Yes Visual hallucinations Attention Span Ability: Unable to Focus, Unable to Sustain Attention Memory Description: Immediate Impaired, Recent Impaired, Remote Impaired Patient Reliability: Not Reliable Historian Fund of knowledge: Yes below average Intelligence Estimate: Below Average Judgment: Poor Insight: None
[2018-09-20] MEDS: *HR* LORazepam 1 MG TABLET PO SCH ×3 (10:33→22:09)
[2018-09-20] MEDS: OLANZapine 5 MG TAB.RAPDIS PO SCH (10:33)
[2018-09-20] MEDS: hydrOXYzine pamoate 25 MG CAPSULE PO PRN (22:09)
[2018-09-20] MEDS: OLANZapine 10 MG TAB.RAPDIS PO SCH (22:09)
--- NOTE | 2018-09-21 08:12 | Psychiatry Progress Note ---
Date of Encounter: 09/21/18 Time of Encounter: 08:10 Subjective Interval history: pt is still very disorganized. No real change with the ativan. SHe is responding to internal stimuli. Not caring for ADLs, eating very little. Review of Systems Psychiatric: Reports: anxiety, auditory hallucinations, visual hallucinations, difficulty concentrating, irritability, other (psychosis) Results - Vital Signs Vital Signs: Temp Pulse Resp BP Pulse Ox 98.2 F 92 14 103/66 100 09/20/18 21:00 09/20/18 21:00 09/20/18 21:00 09/20/18 21:00 09/20/18 21:00 Assessment and Plan (1) Schizophrenia Current visit: Yes Status: Acute Plan: Continue hospitalization, Close observation, Suicide Precautions per unit protocol, Encourage participation in unit milieu, Group Therapy, Monitor sleep, Monitor appetite Additional Plan: continue meds, encourage groups, therapist trying to get collateral. Risks, benefits, side effects, alternatives discussed w/pt: Yes Patient agreeable to treatment: Yes Qualifiers: Schizophrenia type: undifferentiated schizophrenia Qualified Code(s): F20.3 - Undifferentiated schizophrenia Consult Discharge Plan - Plan Referrals: NONE,PCP [Primary Care Provider] - Psychiatry Exam - Constitutional Vitals: Temp Pulse Resp BP Pulse Ox 98.2 F 92 14 103/66 100 09/20/18 21:00 09/20/18 21:00 09/20/18 21:00 09/20/18 21:00 09/20/18 21:00 General appearance: age & developmentally appropriate, unkempt, disheveled, bizarre - Musculoskeletal Gait: normal Station: relaxed Strength & Tone: normal for patient - Psychiatric Patient Orientation: Yes Person, Yes Time, Yes Place Level of alertness: Alert Behavior: guarded, suspicious Psychomotor activity: Normal Eye Contact: Maintains Eye Contact Mood Description: Labile Patient description of mood: the earth is my home Affect description: labile, incongruent with mood Speech Volume: Soft/Quiet Speech pattern: garbled Language & Vocabulary: limited Thought Process: Disorganized Thought Content: No Suicidal ideation, No Homicidal ideation, No Overt delusions Perceptual Disturbances: Yes Reacting to internal stimuli, Yes Auditory hallucinations, Yes Visual hallucinations Attention Span Ability: Unable to Sustain Attention Memory Description: Immediate Impaired, Recent Impaired, Remote Impaired Patient Reliability: Not Reliable Historian Fund of knowledge: Yes abstraction ability, Yes below average Intelligence Estimate: Below Average Judgment: Poor Insight: None
[2018-09-21] MEDS: *HR* LORazepam 1 MG TABLET PO SCH ×3 (10:25→21:10)
[2018-09-21] MEDS: OLANZapine 5 MG TAB.RAPDIS PO SCH (10:25)
[2018-09-21] MEDS: OLANZapine 10 MG TAB.RAPDIS PO SCH (21:10)
[2018-09-22] MEDS: *HR* LORazepam 1 MG TABLET PO SCH ×3 (09:20→20:59)
[2018-09-22] MEDS: OLANZapine 5 MG TAB.RAPDIS PO SCH (09:20)
--- NOTE | 2018-09-22 09:33 | Psychiatry Progress Note ---
Date of Encounter: 09/22/18 Time of Encounter: 09:30 Subjective Interval history: Patient still actively responding to internal stimuli. Having side conversations when no one is there. She is agitated. Saying "I will do whatever I have to to get out of here". She talks about herself in the third person. I continue to try to get more information about this does be person who she says she has been living with but she cannot give me a logical phone number and goes back and forth on pronouns. It is unclear if this is a legitimate person. She also mentioned that Malik today. With much encouragement from staff she did shower yesterday and she is looking slightly less dirty and malod orous though she is still very disheveled. She is eating minimally. She still attempts to cheek medications but with staff encouragement does take them. She has been agitated. Review of Systems Psychiatric: Reports: anxiety, auditory hallucinations, visual hallucinations, difficulty concentrating, irritability, other (psychosis) Results - Vital Signs Vital Signs: Temp Pulse Resp BP Pulse Ox 99.2 F 106 20 111/68 98 09/21/18 21:00 09/21/18 21:00 09/21/18 21:00 09/21/18 21:00 09/21/18 21:00 Assessment and Plan (1) Schizophrenia Current visit: Yes Status: Acute Plan: Continue hospitalization, Close observation, Suicide Precautions per unit protocol, Encourage participation in unit milieu, Group Therapy, Monitor sleep, Monitor appetite Additional Plan: Increase situs to 10 mg twice a day for further stabilization of psychosis and mood. Encourage group attendance. To get collateral information. Risks, benefits, side effects, alternatives discussed w/pt: Yes Patient agreeable to treatment: Yes Qualifiers: Schizophrenia type: undifferentiated schizophrenia Qualified Code(s): F20.3 - Undifferentiated schizophrenia Consult Discharge Plan - Plan Referrals: NONE,PCP [Primary Care Provider] - Psychiatry Exam - Constitutional Vitals: Temp Pulse Resp BP Pulse Ox 99.2 F 106 20 111/68 98 09/21/18 21:00 09/21/18 21:00 09/21/18 21:00 09/21/18 21:00 09/21/18 21:00 General appearance: disheveled, bizarre - Musculoskeletal Gait: other (Pacing) Station: bizarre mannerisms Strength & Tone: mild weakness - Psychiatric Patient Orientation: Yes Person Level of alertness: Alert Behavior: agitated, guarded, suspicious Psychomotor activity: Increased Eye Contact: No Eye Contact Mood Description: Irritable Patient description of mood: I want to get out of here Affect description: labile Speech pattern: garbled Language & Vocabulary: limited Thought Process: Disorganized Thought Content: No Suicidal ideation, No Homicidal ideation, Yes Preoccupation, Yes Paranoid delusion, Yes Grandiose delusion Perceptual Disturbances: Yes Reacting to internal stimuli, Yes Auditory hallucinations, Yes Visual hallucinations Attention Span Ability: Unable to Focus, Unable to Sustain Attention Memory Description: Immediate Impaired, Recent Impaired, Remote Impaired Patient Reliability: Not Reliable Historian Fund of knowledge: Yes below average Intelligence Estimate: Below Average Judgment: Poor Insight: None
[2018-09-22] MEDS: OLANZapine 10 MG TAB.RAPDIS PO SCH (20:52)
--- NOTE | 2018-09-23 08:55 | Psychiatry Progress Note ---
Date of Encounter: 09/23/18 Time of Encounter: 08:53 Subjective Interval history: Patient tolerated the increase in Zyprexa. She is at least more aware of where she is now understand she is in the hospital and is asking to leave. However she continues to be very disorganized she paces the villalpando in circles, is not caring for her ADLs, is eating very little, is responding to internal stimuli and talking to herself. She is paranoid. She has been threatening verbally but has not acted out physically. Her mother did find her and called the unit. She was able to provide some information. According to the nurses note: "This RN receives a call from the patient's mother Yadi Howard cell [phone], home [phone]. Information provided by mother patient has a long history of schizophrenia and this started in the 5th or 6th grade for the patient. Mother states that the patient has been off of her medications for approximately 1 year now the patient lives with her mother in [place] from the [facility]. Yadi states that patient is hard to handle when she is having command hallucinations and she does what the voices are telling her to do. The patient's mother states that the patient was not eating and her mother was giving her Ensure to drink. The patient's mother states that she has had to wrestle the patient and wash her hair, the patient's mother states that the knots were so bad in the patient's hair that she could not comb them out and they had to be cut. The patient was on an IEP all through school and did graduate. She has no significant work history and has had 2 temp jobs and didn't meet qualifications. 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 Yadi states that the patient likes to patti and draw. The patient was engaged and her fiance , as he aspirated in his sleep. Yadi states, "After losing Arden, she has never been right." Pt does have a history of burning her self with cigarettes and cutting superficially. The only legal history happens about 2 years ago when the patient walked across the street and had been drinking the patient was arrested for public intox. and mother bailed out the next morning. Yadi states that the patient is allergic to Invega and as far as she know that is the only medication the patient can not take. Yadi states the Invega "made Earnestine have convulsions" Yadi states that the patient did well on Paxil and Prozac years ago. Yadi is hopeful that the patient will be linked with services as far as a counselor and prescriber." Review of Systems Psychiatric: Reports: anxiety, auditory hallucinations, visual hallucinations, difficulty concentrating, irritability, other (psychosis) Results - Vital Signs Vital Signs: Temp Pulse Resp BP Pulse Ox 98.3 F 96 16 126/59 99 09/22/18 20:47 09/22/18 20:47 09/22/18 20:47 09/22/18 20:47 09/22/18 20:47 Assessment and Plan (1) Schizophrenia Current visit: Yes Status: Acute Plan: Continue hospitalization, Close observation, Suicide Precautions per unit protocol, Encourage participation in unit milieu, Group Therapy, Monitor sleep, Monitor appetite Additional Plan: Continue medications. Consider further increase Zyprexa tomorrow. Encourage group attendance. Risks, benefits, side effects, alternatives discussed w/pt: Yes Patient agreeable to treatment: Yes Qualifiers: Schizophrenia type: undifferentiated schizophrenia Qualified Code(s): F20.3 - Undifferentiated schizophrenia Consult Discharge Plan - Plan Referrals: NONE,PCP [Primary Care Provider] - Psychiatry Exam - Constitutional Vitals: Temp Pulse Resp BP Pulse Ox 98.3 F 96 16 126/59 99 09/22/18 20:47 09/22/18 20:47 09/22/18 20:47 09/22/18 20:47 09/22/18 20:47 General appearance: unkempt, disheveled, malodorous, thin - Musculoskeletal Gait: slow Station: stooped Strength & Tone: normal for patient - Psychiatric Patient Orientation: Yes Person, Yes Place Level of alertness: Alert Behavior: agitated, guarded, suspicious Psychomotor activity: Increased Eye Contact: No Eye Contact Mood Description: Angry, Labile Patient description of mood: "I want to go home now. Now!" Affect description: labile Speech Volume: Loud Speech pattern: normal rate Language & Vocabulary: limited Thought Process: Disorganized Thought Content: No Suicidal ideation, No Homicidal ideation, Yes Overt delusions, Yes Paranoid delusion Perceptual Disturbances: Yes Reacting to internal stimuli, Yes Auditory hallucinations, Yes Visual hallucinations Attention Span Ability: Unable to Focus, Unable to Sustain Attention Memory Description: Immediate Impaired, Recent Impaired, Remote Impaired Patient Reliability: Not Reliable Historian Fund of knowledge: Yes below average Intelligence Estimate: Below Average Judgment: Poor Insight: None
[2018-09-23] MEDS: OLANZapine 10 MG TAB.RAPDIS PO SCH ×2 (08:58→20:03)
[2018-09-23] MEDS: *HR* LORazepam 1 MG TABLET PO SCH ×3 (08:58→20:03)
[2018-09-23] MEDS: hydrOXYzine pamoate 25 MG CAPSULE PO PRN ×2 (13:53→20:03)
[2018-09-24] MEDS: OLANZapine 10 MG TAB.RAPDIS PO SCH ×2 (09:51→21:28)
[2018-09-24] MEDS: *HR* LORazepam 1 MG TABLET PO SCH ×3 (09:53→21:28)
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
[2018-09-24] MEDS: OLANZapine 5 MG TAB.RAPDIS PO SCH (21:29)
[2018-09-25] MEDS: OLANZapine 5 MG TAB.RAPDIS PO SCH ×2 (08:24→20:56)
[2018-09-25] MEDS: *HR* LORazepam 1 MG TABLET PO SCH ×3 (08:24→20:55)
[2018-09-25] MEDS: OLANZapine 10 MG TAB.RAPDIS PO SCH ×2 (08:24→20:56)
[2018-09-26] MEDS: OLANZapine 5 MG TAB.RAPDIS PO SCH ×2 (08:36→20:01)
[2018-09-26] MEDS: OLANZapine 10 MG TAB.RAPDIS PO SCH ×2 (08:36→20:01)
[2018-09-26] MEDS: *HR* LORazepam 1 MG TABLET PO SCH ×3 (08:37→20:01)
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
[2018-09-27] MEDS: OLANZapine 10 MG TAB.RAPDIS PO SCH ×2 (08:54→20:23)
[2018-09-27] MEDS: OLANZapine 5 MG TAB.RAPDIS PO SCH ×2 (08:54→20:24)
[2018-09-27] MEDS: *HR* LORazepam 1 MG TABLET PO SCH ×3 (08:54→20:23)
--- NOTE | 2018-09-27 09:18 | Psychiatry Progress Note ---
Date of Encounter: 09/27/18 Time of Encounter: 09:15 Subjective Interval history: Remains very psychotic but becoming more functional. Able to hold brief conversations. Actually approached staff and tried to initiate a conversation about her discharge yesterday. Today when speaking with this screenplay writer she spilled some coffee. She recognized this, cleaned it up with her sock, and then took a sip from her cup before standing up so she would not spill again. Behaviors are definitely more organized. Attempting to have [facility] see her this afternoon. Also referring her for intensive case management services in case she returns home to live with mother. Very ill at baseline and will need a lot of community support set up prior to discharge. Review of Systems Constitutional: Denies: fever, chills, weakness, weight change Eyes: Denies: eye pain, vision change Ears, Nose, Throat: Denies: ear pain, throat pain, dental pain, hearing loss, congestion Cardiovascular: Denies: chest pain, palpitations, dyspnea on exertion Respiratory: Denies: cough, dyspnea, wheezes Gastrointestinal: Denies: abdominal pain, nausea, vomiting, diarrhea, constipation Musculoskeletal: Denies: joint swelling, joint pain Neurological: Denies: headache, weakness, numbness, memory loss Psychiatric: Reports: anxiety, auditory hallucinations, visual hallucinations, difficulty concentrating, irritability, other (psychosis) Results - Vital Signs Vital Signs: Temp Pulse Resp BP Pulse Ox 98.2 F 97 18 99/77 100 09/27/18 08:09 09/27/18 08:09 09/27/18 08:09 09/27/18 08:09 09/27/18 08:09 Assessment and Plan (1) Schizophrenia Current visit: Yes Status: Acute Plan: Continue hospitalization, Close observation, Suicide Precautions per unit protocol, Encourage participation in unit milieu, Group Therapy, Monitor sleep, Monitor appetite Risks, benefits, side effects, alternatives discussed w/pt: Yes Patient agreeable to treatment: Yes Qualifiers: Schizophrenia type: undifferentiated schizophrenia Qualified Code(s): F20.3 - Undifferentiated schizophrenia Consult Discharge Plan - Plan Referrals: [facility] [Outside] Psychiatry Exam - Constitutional Vitals: Temp Pulse Resp BP Pulse Ox 98.2 F 97 18 99/77 100 09/27/18 08:09 09/27/18 08:09 09/27/18 08:09 09/27/18 08:09 09/27/18 08:09 General appearance: disheveled - Musculoskeletal Gait: normal Station: relaxed Strength & Tone: normal for patient - Psychiatric Patient Orientation: Yes Person, Yes Time, Yes Place Level of alertness: Alert Behavior: calm, cooperative Psychomotor activity: Increased Eye Contact: Fleeting Contact Mood Description: Euthymic/stable Affect description: congruent with mood Speech Volume: Normal Speech pattern: mumbled Language & Vocabulary: consistent with education Thought Process: Thought Blocking Thought Content: No Suicidal ideation, No Homicidal ideation, No Overt delusions Perceptual Disturbances: Yes Reacting to internal stimuli, Yes Auditory hallucinations Attention Span Ability: Capable of Focused Attention, Unable to Sustain Attention Memory Description: Grossly Intact Patient Reliability: Questionable Historian Fund of knowledge: Yes abstraction ability Intelligence Estimate: Average Judgment: Limited Insight: Minimal
[2018-09-27] MEDS: hydrOXYzine pamoate 25 MG CAPSULE PO PRN (20:23)
[2018-09-28] MEDS: OLANZapine 10 MG TAB.RAPDIS PO SCH ×2 (08:21→20:57)
[2018-09-28] MEDS: OLANZapine 5 MG TAB.RAPDIS PO SCH ×2 (08:22→20:57)
[2018-09-28] MEDS: *HR* LORazepam 1 MG TABLET PO SCH ×3 (08:22→20:57)
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
[2018-09-29] MEDS: *HR* LORazepam 1 MG TABLET PO SCH ×3 (08:56→20:55)
[2018-09-29] MEDS: OLANZapine 5 MG TAB.RAPDIS PO SCH ×2 (08:56→20:55)
[2018-09-29] MEDS: OLANZapine 10 MG TAB.RAPDIS PO SCH ×2 (08:56→20:56)
--- NOTE | 2018-09-29 09:34 | Psychiatry Progress Note ---
Date of Encounter: 09/29/18 Time of Encounter: 09:31 Subjective Interval history: Client remains psychotic but is likely at baseline. [facility] was unable to see her yesterday but the plan is to discharge her to [facility] today provided they have a bed and accept her this afternoon. Client continues to respond to IS but she is otherwise cooperative. Has been attempting a couple of groups. Eating and sleeping well. No insight that she is mentally ill but compliant with medications in the hospital. Tolerating high dose Zyprexa now without issue. Denies AH are bothersome to her. Mood stable. Review of Systems Constitutional: Denies: fever, chills, weakness, weight change Eyes: Denies: eye pain, vision change Ears, Nose, Throat: Denies: ear pain, throat pain, dental pain, hearing loss, congestion Cardiovascular: Denies: chest pain, palpitations, dyspnea on exertion Respiratory: Denies: cough, dyspnea, wheezes Gastrointestinal: Denies: abdominal pain, nausea, vomiting, diarrhea, constipation Musculoskeletal: Denies: joint swelling, joint pain Neurological: Denies: headache, weakness, numbness, memory loss Psychiatric: Reports: anxiety, auditory hallucinations, visual hallucinations, difficulty concentrating, irritability, other (psychosis) Results - Vital Signs Vital Signs: Temp Pulse Resp BP Pulse Ox 99.2 F 99 16 108/71 98 09/28/18 19:56 09/28/18 19:56 09/28/18 19:56 09/28/18 19:56 09/28/18 19:56 Assessment and Plan (1) Schizophrenia Current visit: Yes Status: Acute Plan: Continue hospitalization, Close observation, Suicide Precautions per unit protocol, Encourage participation in unit milieu, Group Therapy, Monitor sleep, Monitor appetite Risks, benefits, side effects, alternatives discussed w/pt: Yes Patient agreeable to treatment: Yes Qualifiers: Schizophrenia type: undifferentiated schizophrenia Qualified Code(s): F20.3 - Undifferentiated schizophrenia Consult Discharge Plan - Plan Referrals: [facility] [Outside] Psychiatry Exam - Constitutional Vitals: Temp Pulse Resp BP Pulse Ox 99.2 F 99 16 108/71 98 09/28/18 19:56 09/28/18 19:56 09/28/18 19:56 09/28/18 19:56 09/28/18 19:56 General appearance: disheveled - Musculoskeletal Gait: normal Station: relaxed Strength & Tone: normal for patient - Psychiatric Patient Orientation: Yes Person, Yes Time, Yes Place Level of alertness: Alert Behavior: calm, cooperative Psychomotor activity: Increased Eye Contact: Maintains Eye Contact Mood Description: Euthymic/stable Affect description: congruent with mood Speech Volume: Normal Speech pattern: mumbled Language & Vocabulary: consistent with education Thought Process: Thought Blocking Thought Content: No Suicidal ideation, No Homicidal ideation, No Overt delusions Perceptual Disturbances: Yes Reacting to internal stimuli, Yes Auditory hallucinations Attention Span Ability: Capable of Focused Attention, Unable to Sustain Attention Memory Description: Grossly Intact Patient Reliability: Questionable Historian Fund of knowledge: Yes abstraction ability Intelligence Estimate: Average Judgment: Fair Insight: Minimal
[2018-09-30] MEDS: OLANZapine 10 MG TAB.RAPDIS PO SCH ×2 (09:08→22:01)
[2018-09-30] MEDS: *HR* LORazepam 1 MG TABLET PO SCH ×3 (09:08→22:01)
[2018-09-30] MEDS: OLANZapine 5 MG TAB.RAPDIS PO SCH ×2 (09:08→22:01)
--- NOTE | 2018-09-30 13:33 | Psychiatry Progress Note ---
Date of Encounter: 09/30/18 Time of Encounter: 12:40 Subjective Interval history: "Alright. I'm trying to figure out how to get better to get out of this [facility] asylum." She tells me she is sleeping fine and eating fine. Staff report that she is engaging more on the unit and is much more functional. Her ADL's have greatly improved. She tells me she gets nauseated at times when she takes her medications, but then she eats a snack and it resolves. She does not think she has a mental health issue that requires her to be in a hospital. She believes she is fine at this time to discharge. She denies auditory hallucinations, but is responding to internal stimuli during our conversation. She has a difficult time tracking our conversation at times when she is responding. Review of Systems Psychiatric: Reports: anxiety, auditory hallucinations, visual hallucinations, difficulty concentrating, irritability, other (psychosis) Results - Vital Signs Vital Signs: Temp Pulse Resp BP Pulse Ox 97.7 F 93 16 105/73 97 09/30/18 09:00 09/30/18 09:00 09/30/18 09:00 09/30/18 09:00 09/30/18 09:00 Assessment and Plan (1) Schizophrenia Current visit: Yes Status: Acute Plan: Continue hospitalization, Close observation, Other (Possible placement soon at [facility] ) Risks, benefits, side effects, alternatives discussed w/pt: Yes Patient agreeable to treatment: Yes Qualifiers: Schizophrenia type: undifferentiated schizophrenia Qualified Code(s): F20.3 - Undifferentiated schizophrenia Consult Discharge Plan - Plan Referrals: [facility] [Outside] Psychiatry Exam - Constitutional Vitals: Temp Pulse Resp BP Pulse Ox 97.7 F 93 16 105/73 97 09/30/18 09:00 09/30/18 09:00 09/30/18 09:00 09/30/18 09:00 09/30/18 09:00 General appearance: well-groomed (improved from admission.) - Musculoskeletal Gait: normal Station: stooped Strength & Tone: normal for patient - Psychiatric Patient Orientation: Yes Person, Yes Time, Yes Place, Yes Circumstance Level of alertness: Sedated Behavior: anxious (at times), suspicious, distractible Psychomotor activity: Slowed Eye Contact: Fleeting Contact Mood Description: Anxious Affect description: blunted Speech Volume: Soft/Quiet Speech pattern: slowed Thought Process: Circumstantial, Loose Associations Perceptual Disturbances: Yes Reacting to internal stimuli Attention Span Ability: Unable to Sustain Attention Patient Reliability: Not Reliable Historian Fund of knowledge: Yes below average Intelligence Estimate: Below Average Judgment: Limited Insight: Minimal
[2018-10-01] MEDS: OLANZapine 5 MG TAB.RAPDIS PO SCH ×2 (08:18→21:14)
[2018-10-01] MEDS: *HR* LORazepam 1 MG TABLET PO SCH ×3 (08:18→21:14)
[2018-10-01] MEDS: OLANZapine 10 MG TAB.RAPDIS PO SCH ×2 (08:19→21:14)
--- NOTE | 2018-10-01 10:13 | Psychiatry Progress Note ---
Date of Encounter: 10/01/18 Time of Encounter: 10:00 Subjective Interval history: "I'm sleepy". States she slept fine last evening, but still tired today. She denies any other issues. She denies Auditory hallucinations. She does not want to talk to me, and tells me she is fine. She verbalizes she feels she is ready to be discharged, but speaks no further. Review of Systems Psychiatric: Reports: anxiety, auditory hallucinations, visual hallucinations, difficulty concentrating, irritability, other (psychosis) Results - Vital Signs Vital Signs: Temp Pulse Resp BP Pulse Ox 97.4 F L 83 16 91/69 100 10/01/18 08:05 10/01/18 08:05 10/01/18 08:05 10/01/18 08:05 10/01/18 08:05 Assessment and Plan (1) Schizophrenia Current visit: Yes Status: Acute Plan: Continue hospitalization, Close observation Risks, benefits, side effects, alternatives discussed w/pt: Yes Patient agreeable to treatment: Yes (She wants discharge soon. It has been explained to ere waiting on placement) Qualifiers: Schizophrenia type: undifferentiated schizophrenia Qualified Code(s): F20.3 - Undifferentiated schizophrenia Consult Discharge Plan - Plan Referrals: [facility] [Outside] Psychiatry Exam - Constitutional Vitals: Temp Pulse Resp BP Pulse Ox 97.4 F L 83 16 91/69 100 10/01/18 08:05 10/01/18 08:05 10/01/18 08:05 10/01/18 08:05 10/01/18 08:05 General appearance: unkempt Additional observations: Lying in her bed in position, wanting to sleep and not wanting to engage/converse - Psychiatric Patient Orientation: Yes Time, Yes Place Level of alertness: Sedated Behavior: uncooperative Eye Contact: Fleeting Contact Mood Description: Other (tired) Affect description: blunted Speech Volume: Soft/Quiet Speech pattern: normal rate, normal rhythm Thought Process: Circumstantial, [place] Perceptual Disturbances: Yes Reacting to internal stimuli Attention Span Ability: Unable to Sustain Attention Memory Description: Recent Impaired Patient Reliability: Not Reliable Historian Fund of knowledge: Yes below average Intelligence Estimate: Below Average Judgment: Fair Insight: Minimal
[2018-10-02] MEDS: OLANZapine 5 MG TAB.RAPDIS PO SCH ×2 (08:23→20:13)
[2018-10-02] MEDS: *HR* LORazepam 1 MG TABLET PO SCH ×3 (08:23→20:11)
[2018-10-02] MEDS: OLANZapine 10 MG TAB.RAPDIS PO SCH ×2 (08:24→20:13)
--- NOTE | 2018-10-02 08:35 | Psychiatry Progress Note ---
Date of Encounter: 10/02/18 Time of Encounter: 08:25 Subjective Interval history: "I'm good". She denies any issues. She does not recognize me even though I have seen her daily for the past 3 days. She is not participating on the unit in activities often, but has greatly improved since being her regarding hygiene and her ability to verbalize and interact with staff. I have observed her racking slowly while seated a couple of times. Question if this might be EPS related. Will advise staff to give her a prn of Cogentin and monitor the rocking during the day for possible improvement. She denies any other issues. She tells me, hesitantly, today that she will stay on her medications once she leaves her, 'To see if they help". She denies aud villalpando but continues to periodically respond to internal stim. Review of Systems Psychiatric: Reports: anxiety, auditory hallucinations, visual hallucinations, difficulty concentrating, irritability, other (psychosis) Results - Vital Signs Vital Signs: Temp Pulse Resp BP Pulse Ox 98.7 F 85 16 106/74 98 10/01/18 21:00 10/01/18 21:00 10/01/18 21:00 10/01/18 21:00 10/01/18 21:00 Assessment and Plan (1) Schizophrenia Current visit: Yes Status: Acute Plan: Continue hospitalization, Close observation, Suicide Precautions per unit protocol, Encourage participation in unit milieu Risks, benefits, side effects, alternatives discussed w/pt: Yes Patient agreeable to treatment: Yes (Utilize PRN of cogentin to see if rocking is EPS) Qualifiers: Schizophrenia type: undifferentiated schizophrenia Qualified Code(s): F20.3 - Undifferentiated schizophrenia Consult Discharge Plan - Plan Referrals: [facility] [Outside] Psychiatry Exam - Constitutional Vitals: Temp Pulse Resp BP Pulse Ox 98.7 F 85 16 106/74 98 10/01/18 21:00 10/01/18 21:00 10/01/18 21:00 10/01/18 21:00 10/01/18 21:00 General appearance: age & developmentally appropriate, disheveled - Musculoskeletal Gait: normal Station: other (rocking while seated) - Psychiatric Patient Orientation: Yes Time, Yes Place Level of alertness: Alert Behavior: cooperative Psychomotor activity: Repetitive movements (rocking while in seated position) Eye Contact: Minimal Contact Mood Description: Anxious Affect description: congruent with mood Speech Volume: Normal Speech pattern: monotone Language & Vocabulary: consistent with education Thought Process: Circumstantial Thought Content: Yes Suicidal ideation (denies) Perceptual Disturbances: Yes Reacting to internal stimuli (decreased) Patient Reliability: Not Reliable Historian Fund of knowledge: Yes below average Intelligence Estimate: Below Average Judgment: Fair Insight: Partial
[2018-10-03] MEDS: *HR* LORazepam 1 MG TABLET PO SCH ×3 (09:04→21:08)
[2018-10-03] MEDS: OLANZapine 10 MG TAB.RAPDIS PO SCH ×2 (09:04→21:08)
[2018-10-03] MEDS: OLANZapine 5 MG TAB.RAPDIS PO SCH ×2 (09:04→21:08)
--- NOTE | 2018-10-03 11:03 | Psychiatry Progress Note ---
Date of Encounter: 10/03/18 Time of Encounter: 10:40 Subjective Interval history: Patient tells me, "I'm fine." She denies any issues. She denies she has mental health diagnosis. She tells me when I ask her if she will continue taking her psych meds after discharge, she verbalizes"yes" while shake her head no and smiling. I attempted to talk to her about her probate hearing today. She did not comprehend and just kept asking if she would leave after that, responding to int stim and laughing inappropriately. Review of Systems Psychiatric: Reports: anxiety, auditory hallucinations, visual hallucinations, difficulty concentrating, irritability, other (psychosis) Results - Vital Signs Vital Signs: Temp Pulse Resp BP Pulse Ox 98.1 F 95 16 102/71 99 10/03/18 09:00 10/03/18 09:00 10/03/18 09:00 10/03/18 09:00 10/03/18 09:00 Assessment and Plan (1) Schizophrenia Current visit: Yes Status: Acute Plan: Continue hospitalization, Close observation, Encourage participation in unit milieu, Monitor sleep, Monitor appetite Risks, benefits, side effects, alternatives discussed w/pt: Yes Patient agreeable to treatment: No (Not agreeable today. Minimal insight, Probate hearing today) Qualifiers: Schizophrenia type: undifferentiated schizophrenia Qualified Code(s): F20.3 - Undifferentiated schizophrenia Consult Discharge Plan - Plan Referrals: [facility] [Outside] Psychiatry Exam - Constitutional Vitals: Temp Pulse Resp BP Pulse Ox 98.1 F 95 16 102/71 99 10/03/18 09:00 10/03/18 09:00 10/03/18 09:00 10/03/18 09:00 10/03/18 09:00 General appearance: age & developmentally appropriate - Musculoskeletal Gait: normal Station: stooped, bizarre mannerisms Strength & Tone: normal for patient - Psychiatric Patient Orientation: Yes Place Level of alertness: Follows commands Behavior: anxious Psychomotor activity: Normal Eye Contact: Fleeting Contact Mood Description: Anxious Affect description: inappropriate to situation Speech Volume: Normal Speech pattern: monotone Language & Vocabulary: limited Thought Process: Circumstantial, Loose Associations, [place] Perceptual Disturbances: Yes Reacting to internal stimuli Attention Span Ability: Unable to Focus Memory Description: Recent Impaired Patient Reliability: Not Reliable Historian Fund of knowledge: Yes below average Intelligence Estimate: Below Average Judgment: Limited Insight: Minimal
[2018-10-04] MEDS: OLANZapine 5 MG TAB.RAPDIS PO SCH (08:31)
[2018-10-04] MEDS: OLANZapine 10 MG TAB.RAPDIS PO SCH ×2 (08:31→21:02)
[2018-10-04] MEDS: *HR* LORazepam 1 MG TABLET PO SCH (08:31)
--- NOTE | 2018-10-04 11:11 | Psychiatry Progress Note ---
Date of Encounter: 10/04/18 Time of Encounter: 10:55 Subjective Interval history: Patient was resting in her room when I went to talk to her. I asked her if she had any questions about her court hearing yesterday. She did not recall what they said. I re-explained to her the results and talked to her about her medications. She denied any side effects and I told her she seemed to still be struggling with hearing voices, she denied. (internal stim frequently observed) I explained to her that under the court order, I was going to increase her medications a little higher to see if that helped further. She has shown improvement in daily functioning and can participate in a conversation now.) I spoke to her also about planning discharge soon as we increased the medication. She appeared unphased in the conversation with a blank look as to her treatment. Review of Systems Psychiatric: Reports: anxiety, auditory hallucinations, visual hallucinations, difficulty concentrating, irritability, other (psychosis) Results - Vital Signs Vital Signs: Temp Pulse Resp BP Pulse Ox 98.1 F 106 17 109/69 96 10/04/18 08:52 10/04/18 08:52 10/04/18 08:52 10/04/18 08:52 10/04/18 08:52 Assessment and Plan (1) Schizophrenia Current visit: Yes Status: Acute Plan: Continue hospitalization, Close observation, Suicide Precautions per unit protocol, Encourage participation in unit milieu Risks, benefits, side effects, alternatives discussed w/pt: Yes (Increase Zyprexa by 5 mg bid) Patient agreeable to treatment: Yes (In order to be discahrged under the new court order. ) Qualifiers: Schizophrenia type: undifferentiated schizophrenia Qualified Code(s): F20.3 - Undifferentiated schizophrenia Consult Discharge Plan - Plan Referrals: [facility] [Outside] (You will be going to mental health respite at [facility] on discharge from the hospital. While there, you will be seen daily by the clinic counselors and adult protective caseworker, both individually and in group. [facility] staff will conduct an initial intake psychosocial/diagnostic assessment with you to discuss current symptoms, stressors, and goals. Together with the counselor you will develop an Individualized Service Plan (ISP) and determine the best course of treatment for you. Before leaving the [facility] you will be set up with a counselor at one of the [facility] locations to follow-up on an outpatient basis. ) Psychiatry Exam - Constitutional Vitals: Temp Pulse Resp BP Pulse Ox 98.1 F 106 17 109/69 96 10/04/18 08:52 10/04/18 08:52 10/04/18 08:52 10/04/18 08:52 10/04/18 08:52 General appearance: age & developmentally appropriate Additional observations: Lying in bed with the covers pulled over her head. Hair was clean but disheveled when she uncovered her head and sat up to talk. - Musculoskeletal Station: stooped Strength & Tone: normal for patient - Psychiatric Patient Orientation: Yes Place Level of alertness: Sedated Behavior: cooperative Psychomotor activity: Slowed Eye Contact: Fleeting Contact Affect description: blunted Speech Volume: Normal Speech pattern: monotone Language & Vocabulary: limited Thought Process: Circumstantial, [place] Perceptual Disturbances: Yes Reacting to internal stimuli Attention Span Ability: Unable to Sustain Attention Memory Description: Recent Impaired, Remote Impaired Patient Reliability: Not Reliable Historian Fund of knowledge: Yes below average Intelligence Estimate: Below Average Judgment: Limited Insight: Minimal
[2018-10-05] MEDS: OLANZapine 10 MG TAB.RAPDIS PO SCH ×2 (10:38→21:03)
--- NOTE | 2018-10-05 11:24 | Psychiatry Progress Note ---
Date of Encounter: 10/05/18 Time of Encounter: 10:45 Subjective Interval history: Patient is sitting on her bed, rocking, and tells me she is fine. She denies any side effects of the increased dose of Zyprexa. She is more engaged today, talks in more complete sentences and and has a brighter affect. She is not flat and blunted as she has been in days past. Staff report that she got into a loud verbal confrontation with her mother on the phone earlier in the morning. I asked her if she is feeling anxious, possible akasthesia. She denies being anxious or feeling uncomfortable. She often rocks, even when she came in before being placed on medications. She denies SI/HI. A/V Hallucinations. Requested staff to give PRN of Cogentin again to see if rocking is possible akasthesia. Monitor Review of Systems Psychiatric: Reports: anxiety, auditory hallucinations, visual hallucinations, difficulty concentrating, irritability, other (psychosis) Results - Vital Signs Vital Signs: Temp Pulse Resp BP Pulse Ox 98.6 F 91 18 107/68 98 10/04/18 21:00 10/04/18 21:00 10/04/18 21:00 10/04/18 21:00 10/04/18 21:00 Assessment and Plan (1) Schizophrenia Current visit: Yes Status: Acute Risks, benefits, side effects, alternatives discussed w/pt: Yes (Continue Zyprexa 20 mg bid. (Court ordered meds)) Patient agreeable to treatment: Yes (In order to be discharged under the new court order. ) Qualifiers: Schizophrenia type: undifferentiated schizophrenia Qualified Code(s): F20.3 - Undifferentiated schizophrenia Consult Discharge Plan - Plan Referrals: [facility] [Outside] (You will be going to mental health respite at [facility] on discharge from the hospital. While there, you will be seen daily by the clinic counselors and nurse case management, both individually and in group. [facility] staff will conduct an initial intake psychosocial/diagnostic assessment with you to discuss current symptoms, stressors, and goals. Together with the counselor you will develop an Individualized Service Plan (ISP) and determine the best course of treatment for you. Before leaving the [facility] you will be set up with a counselor at one of the [facility] locations to follow-up on an outpatient basis. ) Psychiatry Exam - Constitutional Vitals: Temp Pulse Resp BP Pulse Ox 98.6 F 91 18 107/68 98 10/04/18 21:00 10/04/18 21:00 10/04/18 21:00 10/04/18 21:00 10/04/18 21:00 General appearance: age & developmentally appropriate, well-groomed (just showered earlier) - Musculoskeletal Station: other (rocking while seated) - Psychiatric Patient Orientation: Yes Person, Yes Place Level of alertness: Alert Behavior: cooperative, other (more engaged) Psychomotor activity: Normal (roking as she often does) Eye Contact: Maintains Eye Contact Mood Description: Anxious Patient description of mood: fine Speech Volume: Normal Speech pattern: fluent (improved) Thought Process: Linear (moreso than previously), Tangential (no overt tangentiality ) Perceptual Disturbances: Yes Reacting to internal stimuli (not overtly today) Attention Span Ability: Capable of Focused Attention (improved) Patient Reliability: Questionable Historian Fund of knowledge: Yes below average Intelligence Estimate: Below Average Judgment: Fair Insight: Partial
[2018-10-06] MEDS: OLANZapine 10 MG TAB.RAPDIS PO SCH ×2 (09:17→21:03)
--- NOTE | 2018-10-06 09:25 | Psychiatry Progress Note ---
Date of Encounter: 10/06/18 Time of Encounter: 08:45 Subjective Interval history: Patient had no change in rocking behaviour with the prn Geetha. She had been talking to her mother on the phone prior to my interview with her yesterday and was most likely the reason for her increased rocking; self soothing coping skill. She tells me today, "I'm good. How are you?" This is the first time she has asked an open ended question with me showing she is engaging more. She was smiling appropriately and denied any adverse side effects of her medication increase. We discussed her continued monitoring over the weekend to make sure she remains stable and discharge planning if being finalized for her to discharge hopefully early next week. Her housing placement currently appears to not have room to take her over the weekend and that is part of her discharge safety and compliance plan. No SI/HI. Review of Systems Psychiatric: Reports: anxiety, auditory hallucinations, visual hallucinations, difficulty concentrating, irritability, other (psychosis) Results - Vital Signs Vital Signs: Temp Pulse Resp BP Pulse Ox 97.2 F L 84 18 107/70 98 10/05/18 20:49 10/05/18 20:49 10/05/18 20:49 10/05/18 20:49 10/05/18 20:49 Assessment and Plan (1) Schizophrenia Current visit: Yes Status: Acute Plan: Continue hospitalization, Close observation, Encourage participation in unit milieu, Monitor sleep, Monitor appetite Risks, benefits, side effects, alternatives discussed w/pt: Yes (Continue Zyprexa 20 mg bid. (Court ordered meds)) Patient agreeable to treatment: Yes (In order to be discharged under the new court order. ) Qualifiers: Schizophrenia type: undifferentiated schizophrenia Qualified Code(s): F20.3 - Undifferentiated schizophrenia Consult Discharge Plan - Plan Referrals: [facility] [Outside] (You will be going to mental health respite at [facility] on discharge from the hospital. While there, you will be seen daily by the clinic counselors and case worker, both individually and in group. [facility] staff will conduct an initial intake psychosocial/diagnostic assessment with you to discuss current symptoms, stressors, and goals. Together with the counselor you will develop an Individualized Service Plan (ISP) and determine the best course of treatment for you. Before leaving the [facility] you will be set up with a counselor at one of the [facility] locations to follow-up on an outpatient basis. ) Psychiatry Exam - Constitutional Vitals: Temp Pulse Resp BP Pulse Ox 97.2 F L 84 18 107/70 98 10/05/18 20:49 10/05/18 20:49 10/05/18 20:49 10/05/18 20:49 10/05/18 20:49 General appearance: age & developmentally appropriate, well-groomed, well- nourished Additional observations: AIMS=0 - Musculoskeletal Gait: normal Station: relaxed Strength & Tone: normal for patient - Psychiatric Patient Orientation: Yes Person, Yes Time, Yes Place Level of alertness: Alert Behavior: calm, cooperative (engaging) Psychomotor activity: Normal Eye Contact: Maintains Eye Contact Mood Description: Euthymic/stable Affect description: congruent with mood Speech Volume: Normal Speech pattern: normal rate, normal rhythm, normal tone, fluent (improvment. Not monotone.) Language & Vocabulary: consistent with education Thought Process: Linear Thought Content: Yes Intact Perceptual Disturbances: Yes Reacting to internal stimuli (no longer responding that has been observed) Attention Span Ability: Capable of Focused Attention Patient Reliability: Questionable Historian Fund of knowledge: Yes below average Intelligence Estimate: Below Average Judgment: Fair Insight: Partial
[2018-10-06] MEDS: hydrOXYzine pamoate 25 MG CAPSULE PO PRN (22:40)
--- NOTE | 2018-10-07 09:53 | Psychiatry Progress Note ---
Date of Encounter: 10/07/18 Time of Encounter: 09:30 Subjective Interval history: Patient knew my name today and what my function on the unit is. She asked about her pending discharge, "It's on Tuesday, right?" She knew that was two days away. She denied any issues. Stated she slept fine and was taking her medications without side effects. She denied any SI/HI, A/V hallucinations. She has not been responding to internal stimuli as much as previously noted. Review of Systems Psychiatric: Reports: anxiety, auditory hallucinations, visual hallucinations, difficulty concentrating, irritability, other (psychosis) Results - Vital Signs Vital Signs: Temp Pulse Resp BP Pulse Ox 97.9 F 94 16 109/70 98 10/07/18 08:56 10/07/18 08:56 10/07/18 08:56 10/07/18 08:56 10/07/18 08:56 Assessment and Plan (1) Schizophrenia Current visit: Yes Status: Acute Plan: Continue hospitalization, Close observation, Suicide Precautions per unit protocol, Encourage participation in unit milieu, Monitor sleep, Monitor appetite Risks, benefits, side effects, alternatives discussed w/pt: Yes (Continue Zyprexa 20 mg bid. (Court ordered meds)) Patient agreeable to treatment: Yes (pending discharge on Tuesday) Qualifiers: Schizophrenia type: undifferentiated schizophrenia Qualified Code(s): F20.3 - Undifferentiated schizophrenia Consult Discharge Plan - Plan Referrals: [facility] [Outside] (You will be going to mental health respite at [facility] on discharge from the hospital. While there, you will be seen daily by the clinic counselors and rn field case manager, both individually and in group. [facility] staff will conduct an initial intake psychosocial/diagnostic assessment with you to discuss current symptoms, stressors, and goals. Together with the counselor you will develop an Individualized Service Plan (ISP) and determine the best course of treatment for you. Before leaving the [facility] you will be set up with a counselor at one of the [facility] locations to follow-up on an outpatient basis. ) Psychiatry Exam - Constitutional Vitals: Temp Pulse Resp BP Pulse Ox 97.9 F 94 16 109/70 98 10/07/18 08:56 10/07/18 08:56 10/07/18 08:56 10/07/18 08:56 10/07/18 08:56 General appearance: age & developmentally appropriate, well-groomed, well- nourished Additional observations: Showered again this morning. - Musculoskeletal Gait: normal Station: other Strength & Tone: normal for patient - Psychiatric Patient Orientation: Yes Person, Yes Time, Yes Place, Yes Circumstance Level of alertness: Alert Behavior: calm, cooperative Psychomotor activity: Normal Eye Contact: Maintains Eye Contact Mood Description: Euthymic/stable Affect description: congruent with mood Speech Volume: Normal Speech pattern: normal rate, normal rhythm, normal tone, fluent Language & Vocabulary: consistent with education Thought Process: Logical (more than previously), Linear, Goal Oriented Thought Content: Yes Intact Perceptual Disturbances: Yes Reacting to internal stimuli (much less) Attention Span Ability: Capable of Focused Attention Patient Reliability: Questionable Historian Fund of knowledge: Yes below average Intelligence Estimate: Below Average Judgment: Good Insight: Partial
[2018-10-07] MEDS: OLANZapine 10 MG TAB.RAPDIS PO SCH ×2 (10:04→21:12)
[2018-10-07] MEDS: hydrOXYzine pamoate 25 MG CAPSULE PO PRN (21:13)
--- NOTE | 2018-10-08 08:24 | Psychiatry Progress Note ---
Date of Encounter: 10/08/18 Time of Encounter: 08:05 Subjective Interval history: The patient tells me she is good. She slept well and has been eating, No issues. I asked if she spoke to her mother. She said she did and her mother told her that she has to do what the doctor says and take her medications. I reiterated that this was what the court hearing was about and how she has been doing so much better since taking medications. She is aware that tomorrow is Tuesday. "One more day." She denies SI/HI, A/V hallucinations. She currently dose not appear to be responding to internal stimuli. Review of Systems Psychiatric: Reports: anxiety, auditory hallucinations, visual hallucinations, difficulty concentrating, irritability, other (psychosis) Results - Vital Signs Vital Signs: Temp Pulse Resp BP Pulse Ox 98.2 F 77 18 107/69 97 10/07/18 21:00 10/07/18 21:00 10/07/18 21:00 10/07/18 21:00 10/07/18 21:00 Assessment and Plan (1) Schizophrenia Current visit: Yes Status: Acute Plan: Continue hospitalization, Close observation, Encourage participation in unit milieu, Monitor sleep, Monitor appetite Risks, benefits, side effects, alternatives discussed w/pt: Yes (Continue Zyprexa 20 mg bid. (Court ordered me ds)) Patient agreeable to treatment: Yes (pending discharge on tomorrow) Qualifiers: Schizophrenia type: undifferentiated schizophrenia Qualified Code(s): F20.3 - Undifferentiated schizophrenia Consult Discharge Plan - Plan Referrals: [facility] [Outside] (You will be going to mental health respite at [facility] on discharge from the hospital. While there, you will be seen daily by the clinic counselors and case finisher, both individually and in group. [facility] staff will conduct an initial intake psychosocial/diagnostic assessment with you to discuss current symptoms, stressors, and goals. Together with the counselor you will develop an Individualized Service Plan (ISP) and determine the best course of treatment for you. Before leaving the [facility] you will be set up with a counselor at one of the [facility] locations to follow-up on an outpatient basis. ) Psychiatry Exam - Constitutional Vitals: Temp Pulse Resp BP Pulse Ox 98.2 F 77 18 107/69 97 10/07/18 21:00 10/07/18 21:00 10/07/18 21:00 10/07/18 21:00 10/07/18 21:00 General appearance: age & developmentally appropriate, disheveled (mildly. Just woke up and has not showered or eaten breakfast yet. ) - Musculoskeletal Gait: normal Station: other (still rocks to self sooth. She does not rock or shake while laying down or resting while in day room or bed. ) Strength & Tone: normal for patient - Psychiatric Patient Orientation: Yes Person, Yes Time, Yes Place, Yes Circumstance Level of alertness: Alert Behavior: cooperative Psychomotor activity: Normal Eye Contact: Maintains Eye Contact Mood Description: Euthymic/stable Affect description: congruent with mood Speech Volume: Normal Speech pattern: normal rate, normal tone, fluent Language & Vocabulary: limited Thought Process: Intact Thought Content: Yes Intact Perceptual Disturbances: Yes Reacting to internal stimuli (not as overtly noticeable any longer) Attention Span Ability: Capable of Focused Attention Memory Description: Recent Impaired Patient Reliability: Questionable Historian Fund of knowledge: Yes below average Intelligence Estimate: Below Average Judgment: Good Insight: Partial
[2018-10-08] MEDS: OLANZapine 10 MG TAB.RAPDIS PO SCH ×2 (08:38→20:20)
[2018-10-09 08:42] VITALS: BP 106/72
[2018-10-09] MEDS: OLANZapine 10 MG TAB.RAPDIS PO SCH (09:09)
--- NOTE | 2018-10-09 09:30 | Discharge Summary ---
Date of Encounter: 10/09/18 Time of Encounter: 09:15 Diagnosis - Discharge Diagnosis (1) Schizophrenia Status: Acute Qualifiers: Schizophrenia type: undifferentiated schizophrenia Qualified Code(s): F20.3 - Undifferentiated schizophrenia Medications - Discharge Medications Prescriptions: hydrOXYzine pamoate [HydrOXYzine Pamoate] 25 mg PO TID PRN 30 Days #60 capsule PRN Reason: Anxiety OLANZapine [Zyprexa Zydis] 20 mg PO BID 30 Days #60 tab.rapdis OLANZapine [Zyprexa Zydis] 20 mg PO BID 30 Days #60 tab.rapdis 10/09/18 [Rx] hydrOXYzine pamoate [HydrOXYzine Pamoate] 25 mg PO TID PRN 30 Days #60 capsule 10/09/18 [Rx] Allergy/AdvReac Type Severity Reaction Status Date / Time paliperidone [From Invega] AdvReac Seizure Verified 09/22/18 15:39 Results Procedures and tests throughout hospitalization: Completed Lab Orders Category Date Time Status Acetaminophen Stat Lab 09/16/18 03:15 Completed Basic Metabolic Panel Stat Lab 09/16/18 03:15 Completed Complete Blood Count [HEME] Stat Lab 09/16/18 03:15 Completed Drug Screen, Urine [UCHEM] Stat Lab 09/16/18 03:04 Completed Ethanol Stat Lab 09/16/18 03:15 Completed Hepatic Panel Stat Lab 09/16/18 03:15 Completed Test Result, Urine [URIN] Stat Lab 09/16/18 03:04 Completed Salicylate Stat Lab 09/16/18 03:15 Completed Thyroid Stimulating Hormone Stat Lab 09/16/18 03:15 Completed Urinalysis reflex Microscopic [URIN] Stat Lab 09/16/18 03:04 Completed Provider Date of admission: 09/16/18 12:44 Primary care physician: PCP NONE Psychiatry Exam - Constitutional Vitals: Temp Pulse Resp BP Pulse Ox 97.3 F L 84 18 106/72 98 10/09/18 08:42 10/09/18 08:42 10/09/18 08:42 10/09/18 08:42 10/09/18 08:42 General appearance: age & developmentally appropriate, well-groomed (Improved; showerling routinely now and combing her hair), well-nourished - Musculoskeletal Gait: normal Station: other (rocks back and forth at times will seated) Strength & Tone: normal for patient - Psychiatric Patient Orientation: Yes Person, Yes Time, Yes Place Level of alertness: Alert Behavior: cooperative Psychomotor activity: Normal Eye Contact: Maintains Eye Contact Mood Description: Anxious (mildly) Affect description: flat Speech Volume: Normal Speech pattern: normal rate, normal rhythm, normal tone, fluent (No longer monotone. She holds fluent engaging conversations now.) Language & Vocabulary: consistent with education Thought Process: Linear (moreso), Goal Oriented (to getting home) Thought Content: Yes Intact Perceptual Disturbances: Yes Reacting to internal stimuli (decreased) Attention Span Ability: Capable of Focused Attention Memory Description: Immediate Impaired, Recent Impaired Patient Reliability: Questionable Historian Fund of knowledge: Yes below average Intelligence Estimate: Below Average Judgment: Fair Insight: Partial Hospital Course Hospital course: Ms. Howard is a 32 year old female who was admitted to 1A psychiatric unit after being brought to the emergency room for evaluation of her severe psychosis. Patient was very psychotic, rambling and her writing incoherently in a book. Her hygiene was horrible. She was unable to take care of herself, unable to hold a conversation and was responding to internal stimuli. The Psychiatrist on the unit who completed her intake started her on low-dose Zyprexa. Patient was unwilling of first to take the Zyprexa; was found to be cheating it at times or refusing it. Slowly she started taking it on a regular basis and overall things slightly improved. She was amenable to taking a shower and cleaning her hair. She started participating on the unit by eating regularly. Her drawings, writings and book rambling decreased in frequency and intensity. Patient's case was heard in probate court for force treatment and medication. The courts found her to need these two things. After the court ruling took place her Zyprexa was gradually increased up to 20 mg PO BID. As the dose was increased patient continued to stabilize even more. She no longer spoke in monosyllabic responses. She was able to hold a conversation. She understood her current situation to a limited extent and the need to take medications, even though it is highly questionable that she will continue to do so once she is discharged. Patient's hygiene was good, her ability to function and eat meals greatly improved. Discharge planning was reviewed. It is highly questionable the patient will remain compliant. Discharge plans are made for her to go to [facility] to slowly be integrated back into the community, yet be monitored at the same time for compliance. Patient was a presumed baseline and was discharged to [facility] with a 30 day supply of her medications and follow-up appointments. Note: The patient's mother called in the morning of discharge. She spoke to myself in regards to the patient's diagnosis and stated that the patient's uncle had the same problems. She stated he was in the [facility] a bit. 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 I explained to her the patient's diagnosis and the need to be on medications. Patient's mother stated once patient was discharged and home, that she was going to contact the [employer] or find someone to do an exorcism as the patient is possessed by a demon. It would appear patient may not have knowledgeable support in her home which is another reason to discharge to the care of [facility] for monitoring at this time. Does patient wish to continue nicotine replacement upon disc: No (NA) - Time Spent with Patient Total time spent providing and/or coordinating discharge services: 20 min Less than 30 minutes Specific discharge activities: Discharge to the care of [facility] Assessment and Plan - Patient/Caregiver Discharge Instructions Activity: resume usual activities as tolerated Diet: regular diet - Follow up Plan Follow up with: [facility] [Outside] (You will be going to mental health respite at [facility] on discharge from the hospital. While there, you will be seen daily by the clinic counselors and shelter case manager, both individually and in group. [facility] staff will conduct an initial intake psychosocial/diagnostic assessment with you to discuss current symptoms, stressors, and goals. Together with the counselor you will develop an Individualized Service Plan (ISP) and determine the best course of treatment for you. Before leaving the [facility] you will be set up with a counselor at one of the [facility] locations to follow-up on an outpatient basis. ) Functional capacity at discharge: independent ambulation Overall status at discharge: patient is progressing back to baseline Disposition: Transfer Other Quality - Multiple Antipsychotics Patient discharged on 2 or more antipsychotic medications: No Procedures - Procedures Procedures: Medication Management, Crisis Stabilization, Supportive Therapy, Group Therapy, Psychoeducational Therapy
== END 2018-10-09 10:20 | disposition other institution (70) | DRG 750 ==
LOC: EMEROOARM 01:21 → SUATTDRO 12:44 → 1ANU 12:44
PROVIDERS: ADMIT Psychiatry & Neurology Psychiatry; ATTEND Psychiatry & Neurology Psychiatry